=== PATIENT | male | born 1985 | race Native Hawaiian/Other Pacific Islander ===

== ENCOUNTER 2018-08-29 20:57 | Emergency (ER) | payer OTHER ==
[~2018-08-29] VITALS: Ht 175.3 cm; Wt 66.7 kg
[2018-08-29 22:11] LABS: PLATELET COUNT 272 K/uL (142-355)
[2018-08-29 22:17] LABS: POTASSIUM 3.9 mmol/L (3.6-5.2)
[2018-08-29 23:02] VITALS: BP 118/65; TEMP 98.1
== END 2018-08-29 23:04 | disposition home or self-care (01) ==
LOC: ED 20:57
PROVIDERS: Family Medicine
DX: N63.10 Unspecified lump in the right breast, unspecified quadrant (principal); N64.4 Mastodynia
CPT/HCPCS: 36415; 80053; 85027; 99283

== ENCOUNTER 2018-12-13 12:17 | Emergency (ER) | payer OTHER ==
[~2018-12-13] VITALS: Ht 177.8 cm; Wt 71.7 kg
[2018-12-13 12:49] VITALS: BP 113/72; TEMP 98.1
== END 2018-12-13 14:32 | disposition home or self-care (01) ==
LOC: ED 12:17
DX: S61.412A Laceration without foreign body of left hand, initial encounter (principal); W45.8XXA Other foreign body or object entering through skin, initial encounter; Y92.89 Other specified places as the place of occurrence of the external cause
CPT/HCPCS: 99281

== ENCOUNTER 2019-05-10 20:53 | Emergency (ER) | payer OTHER ==
[~2019-05-10] VITALS: Ht 175.3 cm; Wt 68.0 kg
[2019-05-10 22:54] VITALS: BP 130/70; TEMP 98.1
== END 2019-05-10 22:55 | disposition home or self-care (01) ==
LOC: ED 20:53
DX: S20.20XA Contusion of thorax, unspecified, initial encounter (principal); W11.XXXA Fall on and from ladder, initial encounter; Y93.H9 Activity, other involving exterior property and land maintenance, building and construction; Y92.017 Garden or yard in single-family (private) house as the place of occurrence of the external cause; R07.89 Other chest pain
CPT/HCPCS: 99283

== ENCOUNTER 2020-01-12 19:58 | Emergency (ER) | payer OTHER ==
[~2020-01-12] VITALS: Ht 175.3 cm; Wt 68.0 kg
[2020-01-12 21:00] VITALS: BP 120/88; TEMP 97.8
== END 2020-01-12 21:00 | disposition home or self-care (01) ==
LOC: ED 19:58
PROC: 08CNXZZ Extirpation of Matter from Right Upper Eyelid, External Approach (ICD-10-PCS; principal; 2020-01-12)
DX: T15.01XA Foreign body in cornea, right eye, initial encounter (principal)
CPT/HCPCS: 99283